=== PATIENT | female | born 1980 | race Two or more races ===

== ENCOUNTER → 2016-12-07 | Outpatient (CLI) | payer MEDICAID ==
[2016-12-06 08:35] VITALS: BP 102/75
[~2016-12-07] VITALS: Ht 157.5 cm; Wt 70.9 kg
[~2016-12-07] MED LIST: BUPIVACAINE/PF 0.25% ONE; BUPIVACAINE/PF 0.5% ONE; CEFAZOLIN 1,000 MG ONE; DEXAMETHASONE 4 MG/ML, 1ML ONE; FENTANYL PF 100 MCG/2ML ONE; LACTATED RINGERS 1,000 ML IV SCH; LIDOCAINE 1%, 2ML SQ PRN; LIDOCAINE GEL 2%, 5ML ONE; LIDOCAINE-MPF 2% ,5ML ONE; MIDAZOLAM 1 MG/ML, 2ML ONE; ONDANSETRON 2MG/ML, 2ML ONE; PHEN1PAC6 PO; PROPOFOL 10 MG/ML, 20ML ONE; SUCCINYLCHOLINE 20 MG/ML, 10ML ONE
[2016-12-07 08:38] LABS: DAU SCREEN DISCLAIMER; HCG UR LOT HCG7030192
[2016-12-07 08:46] LABS: HCG UR OBC PASS
== END | disposition home or self-care (01) ==
LOC: OUT 08:14 → EDSTATUS 10:45
PROVIDERS: ATTEND Orthopaedic Surgery
DX: Z01.818 Encounter for other preprocedural examination (principal); S43.121A Dislocation of right acromioclavicular joint, 100%-200% displacement, initial encounter; X58.XXXA Exposure to other specified factors, initial encounter; Y93.89 Activity, other specified; Y92.89 Other specified places as the place of occurrence of the external cause; Y99.8 Other external cause status
CPT/HCPCS: 80307; 81025; J0690; J1100; J2250; J2405; J2704; J3010; J3490; G0479; J0330